=== PATIENT | female | born 1930 | race Caucasian/White ===

== ENCOUNTER 2017-12-15 18:16 | Inpatient (IN) ==
--- NOTE | 2017-12-15 18:44 | Emergency Department Note ---
Weakness HPI - General Chief complaint: Weakness Stated complaint: Unable to care for self Time Seen by Provider: 12/15/17 18:22 Source: EMS Mode of arrival: EMS Limitations: no limitations - History of Present Illness HPI Narrative: 87-year-old female is brought in by EMS. She was found at home where she lives with her son and is now unable to care for herself. She has dementia and he has been taking care of her but she has not gotten care as she should. She sits on the couch most of the time. My history is from EMS. Her son is now willing to get her placed in the home if able to. She is awake and alert and knows that she is in [facility]. Unable to obtain a history. She denies any pain at this time. She is not in any distress and is afebrile. - Related Data Allergies Allergy/AdvReac Type Severity Reaction Status Date / Time No Known Drug Allergies Allergy Verified 12/15/17 18:17 Review of Systems All systems ED: reviewed and negative except as stated. Past Medical History - Past Medical History Medical history: Reports: no medical history (she reports that she does not take any medicine at this time; her son that lives with her affirms this), dementia, other (pneumonia, left hip replacement, chronic back pain and scoliosis) Psychiatric history: Reports: no psych history CHANGE MANAGEMENT DIRECTOR history: Reports: non-contributory Surgical history ED: Reports: hip replacement (right hip total replacement, left hip nailed), other (has a cathy hole in her head from previous hematoma evacuation) Family history: Reports: non-contributory - Social History smoking status: Former smoker Physical Exam Limitations: no limitations General appearance: alert, in no apparent distress Head: atraumatic Eye: Present: normal appearance. Absent: conjunctival injection Neck: Present: normal inspection, full ROM Chest: Present: normal inspection, symmetric chest wall rise Respiratory: Present: other (decreased lung sounds in lower lobes) Cardiovascular: Present: regular rate, normal heart sounds Abdominal: Present: soft, normal bowel sounds. Absent: tenderness Extremities: Absent: pedal edema Neurological: Present: alert, CN II-XII intact, other (very confused. She knows she is in [place] at the hospital). Absent: oriented X3 Psychiatric: Present: normal affect, normal mood Skin: Present: warm, dry, intact Course Course Narrative: Adult protection services has been called twice in regards to this patient. Her son is not taking care of her at home. They live in a facility such as an adult home and there is a plastic manager who has been checking up on her. According to her son she is a lot more confused in the last couple of weeks. She has a urinary tract infection. He is wanting to see if she can be placed in a SNF She has a urinary tract infection and was given a liter of fluids as well as a gram of Rocephin. She will be admitted and the goal is placement to a alf. Vital Signs Temperature 96.9 F L 12/15/17 18:17 Pulse Rate 73 12/15/17 18:17 Respiratory Rate 16 12/15/17 18:17 Blood Pressure 126/71 12/15/17 18:17 Pulse Oximetry (%) 93 12/15/17 18:17 Temperature 96.9 F L 12/15/17 18:17 Pulse Rate 73 12/15/17 18:17 Respiratory Rate 16 12/15/17 18:17 Blood Pressure 126/71 12/15/17 18:17 Pulse Oximetry (%) 93 12/15/17 18:17 Weakness - Lab Data Lab results reviewed: Yes I reviewed the patient's lab results. Result diagrams: 12/15/17 18:50 12/15/17 18:50 Lab Results 12/15/17 12/15/17 12/15/17 Range/Units 18:50 18:50 18:50 WBC 9.4 (4.5-11.0) K/mcL RBC 2.93 L (4.00-5.20) M/mcL Hgb 9.7 L (12.0-15.0) g/dL Hct 29.0 L (36.0-48.0) % MCV 98.8 (80.0-100.0) fL MCH 33.1 (26.0-34.0) pg MCHC 33.6 (31.0-36.0) g/dL RDW 16.1 H (11.5-14.5) % Plt Count 249 (140-440) K/mcL MPV 7.1 L (7.4-10.4) fL Total Counted 100 Seg Neutrophils % 85 H (38-78) % Band Neutrophils % Not Reportable Lymphocytes % 7 L (15-49) % Monocytes % (Manual) 8 (1-12) % Platelet Estimate Normal (NORMAL) RBC Morphology Abnorm A (NORMAL) Anisocytosis 1+ A (NONE SEEN) Ovalocytes Few A (NONE SEEN) RBC Fragments Rare A (NONE SEEN) VBG Lactic Acid 1.0 (0.5-2.2) mmol/L Sodium 130 L (133-145) mmol/L Potassium 3.4 (3.3-5.1) mmol/L Chloride 95 L (96-108) mmol/L Carbon Dioxide 22 (22-30) mmol/L Anion Gap 13.0 (8-16) BUN 23 (8-23) mg/dl Creatinine 2.2 H (0.6-1.1) mg/dl GFR Calculation 20 Glucose 95 (70-105) mg/dL Calcium 8.6 (8.6-10.4) mg/dl Total Bilirubin 0.5 (0.0-1.0) mg/dL AST 13 (0-37) U/l ALT < 5 (0-40) U/l Alkaline Phosphatase 89 (39-117) U/L Troponin T (0-0.03) ng/ml Total Protein 6.6 (5.9-8.4) gm/dL Albumin 2.9 L (3.2-5.2) gm/dL Globulin 3.7 (2.2-3.7) gm/dL Albumin/Globulin Ratio 0.8 L (1.0-2.3) Urine Color Urine Appearance Urine pH (5.0-9.0) Ur Specific [place] (1.000-1.035) Urine Protein (NEG) mg/dL Urine Glucose (UA) (NEG) mg/dL Urine Ketones (NEG) mg/dL Urine Occult Blood (<0.03) mg/dL Urine Nitrate (NEG) Urine Bilirubin (NEG) mg/dL Urine Urobilinogen (NEG) mg/dL Ur Leukocyte Esterase (NEG) /uL Urine RBC (0-1) /hpf Urine WBC (0-4) /hpf Ur Squamous Epith Cells (0-4) /hpf Urine Bacteria (0) /hpf Hyaline Casts (0-2) /lpf Urine Mucus (0) /hpf Ur Culture Indicated? 12/15/17 12/15/17 Range/Units 18:50 19:40 WBC (4.5-11.0) K/mcL RBC (4.00-5.20) M/mcL Hgb (12.0-15.0) g/dL Hct (36.0-48.0) % MCV (80.0-100.0) fL MCH (26.0-34.0) pg MCHC (31.0-36.0) g/dL RDW (11.5-14.5) % Plt Count (140-440) K/mcL MPV (7.4-10.4) fL Total Counted Seg Neutrophils % (38-78) % Band Neutrophils % Lymphocytes % (15-49) % Monocytes % (Manual) (1-12) % Platelet Estimate (NORMAL) RBC Morphology (NORMAL) Anisocytosis (NONE SEEN) Ovalocytes (NONE SEEN) RBC Fragments (NONE SEEN) VBG Lactic Acid (0.5-2.2) mmol/L Sodium (133-145) mmol/L Potassium (3.3-5.1) mmol/L Chloride (96-108) mmol/L Carbon Dioxide (22-30) mmol/L Anion Gap (8-16) BUN (8-23) mg/dl Creatinine (0.6-1.1) mg/dl GFR Calculation Glucose (70-105) mg/dL Calcium (8.6-10.4) mg/dl Total Bilirubin (0.0-1.0) mg/dL AST (0-37) U/l ALT (0-40) U/l Alkaline Phosphatase (39-117) U/L Troponin T 0.01 (0-0.03) ng/ml Total Protein (5.9-8.4) gm/dL Albumin (3.2-5.2) gm/dL Globulin (2.2-3.7) gm/dL Albumin/Globulin Ratio (1.0-2.3) Urine Color Yellow Urine Appearance Clear Urine pH 6.0 (5.0-9.0) Ur Specific [place] 1.014 (1.000-1.035) Urine Protein Neg (NEG) mg/dL Urine Glucose (UA) Negative (NEG) mg/dL Urine Ketones Neg (NEG) mg/dL Urine Occult Blood 0.2 A (<0.03) mg/dL Urine Nitrate Neg (NEG) Urine Bilirubin Neg (NEG) mg/dL Urine Urobilinogen Neg (NEG) mg/dL Ur Leukocyte Esterase 25 A (NEG) /uL Urine RBC 7 H (0-1) /hpf Urine WBC 5 H (0-4) /hpf Ur Squamous Epith Cells 3 (0-4) /hpf Urine Bacteria Few A (0) /hpf Hyaline Casts 3 H (0-2) /lpf Urine Mucus Few (0) /hpf Ur Culture Indicated? Yes - Radiology Data Radiology results reviewed: Yes I reviewed the patient's radiology results. No acute abnormality on chest x-ray Disposition Pt seen by RAIL OPERATIONS CONTROLLER/PA only: Yes Clinical Impression: UTI (urinary tract infection), Neglected elder Disposition: Xfer As Inpt ([facility]) Condition: Fair Referrals: No,PCP [Primary Care Provider] -
--- NOTE | 2017-12-15 19:19 | XRay Report ---
INDICATION: Weakness. Confusion. TECHNIQUE: AP chest x-ray,portable semiupright COMPARISON: 02/23/2007 FINDINGS:Multiple sutures in the right hemithorax. Right hemidiaphragm is elevated. There is colon interposed between the liver and diaphragm. Appearance is not typical of pneumoperitoneum. Lungs are negative. No parenchymal infiltrate or mass. Heart size and vascularity are normal. No pulmonary edema. There is thoracolumbar scoliosis. IMPRESSION: No acute or focal abnormality. Interpreted and Authenticated by: Rick Cabrera 12/15/17
[2017-12-15 19:33] LABS: Mean Cell Volume 98.8 fL (80.0-100.0); Mean Corpuscular HGB Conc 33.6 g/dL (31.0-36.0); Mean Corpuscular Hemoglobin 33.1 pg (26.0-34.0); Platelet Count 249 K/mcL (140-440); RBC 2.93 M/mcL (4.00-5.20); Red Cell Distribution Width 16.1 % (11.5-14.5)
[2017-12-15 19:51] LABS: ALT/SGPT < 5 U/l (0-40); Albumin 2.9 gm/dL (3.2-5.2); Albumin/Globulin Ratio 0.8 (1.0-2.3); Alkaline Phosphatase 89 U/L (39-117); Blood Urea Nitrogen 23 mg/dl (8-23)
[2017-12-15 19:54] LABS: Anisocytosis 1+ (NONE SEEN); Lymphocytes % 7 % (15-49); Monocytes % (Manual) 8 % (1-12); Ovalocytes FEW (NONE SEEN); Platelet Estimate NORMAL (NORMAL); RBC Morphology ABNORM (NORMAL); Segmented Neutrophils % 85 % (38-78)
[2017-12-15] MEDS ORDERED: 0.9 % SODIUM CHLORIDE 1,000 ML IV ONE ×2 (19:56→21:02)
[2017-12-15] MEDS ORDERED: cefTRIAXone 1 GM VIAL IV ONE (20:05)
[2017-12-15 20:13] LABS: Appearance,Urine CLEAR; Bacteria,Urine FEW /hpf (0); Bilirubin,Urine NEG (NEG); Color,Urine YELLOW; Glucose,Urine (UA) NEGATIVE (NEG); Leukocyte Esterase,Urine 25 /uL (NEG); Mucus,Urine FEW /hpf (0); Protein,Urine NEG (NEG); Specific Gravity,Urine 1.014 (1.000-1.035); Urine Blood 0.2 mg/dL (<0.03); Urine Hyaline Cast 3 /lpf (0-2); Urine RBC 7 /hpf (0-1); Urine Squamous Epithelial Cell 3 /hpf (0-4); Urine WBC 5 /hpf (0-4); Urobilinogen,Urine NEG (NEG)
--- NOTE | 2017-12-15 21:37 | Emergency Department Note ---
ED Note Addendum Note Addendum: agree with diagnosis and treatment with Staci and need for admission to Dr. Jim frazier UTI
--- NOTE | 2017-12-15 22:48 | Internal Med History&Physical ---
Medical - H&P: HPI Patient information: Note initiated : 12/15/17 at 10:44 pm Service Date, if different from initiated Date: [] Patient: Megan Perea 87 y/o F admitted on for Unable to care for self. Chief Complaint: [] History of present illness: Ms. Perea is a 87 year old Female history of dementia does not take any medications according to the med list presented to the hospital today brought by emergency medical services for failure to thrive, inability to take care of herself, and worsening confusion over the last few days. The patient has significant dementia and was not able to answer any questions so as to provide a meaningful history. History obtained predominantly from chart review. According to the chart it seems that the patient has a history of severe dementia has been living with her son and was brought to the emergency room for above complaints. Not sure who called EMS. The patient's son in the past has refused placement for the patient. The patient usually is able to take care of herself it seems most over the last few days has been more confused than her baseline status. According to the ED note it seems that adult protective services have been called twice, to evaluate the patient. This time around the patient's son is willing for placement. The patient's son was not at patient's bedside Patient denies any acute complaints, she just wanted to take some medication and go home In the emergency room patient was noted to be confused, her vital signs stable, labs stable showed some anemia, she had renal failure with a creatinine of 2.2. Clinically appeared dry. Sodium was 130, patient had low albumin at 2.9. The UA was suggestive of a UTI The patient was admitted to the hospital for failure to thrive, renal failure, dehydration, urinary tract infection ROS unobtainable: due to mental status Medical - H&P: PMH Medical history: Dementia Pertinent family history: Unable to review Social history: Lives with son Medical - H&P: Meds Allergies Allergy/AdvReac Type Severity Reaction Status Date / Time No Known Drug Allergies Allergy Verified 12/15/17 18:17 Medical - H&P: Exam - Constitutional Vitals: Temp Pulse Resp BP Pulse Ox 96.9 F L 90 24 H 168/100 100 12/15/17 18:17 12/15/17 21:33 12/15/17 21:33 12/15/17 21:33 12/15/17 21:33 Exam: GENERAL: The patient is a well-developed however is thin and frail. He is alert oriented 1 VITAL SIGNS: Reviewed and as noted elsewhere. HEENT: Head is normocephalic and atraumatic. Extraocular muscles are intact. Pupils are equal, round, and reactive to light. Nares appeared normal. Mouth appears any without lesions. Mucous membranes are dry NECK: Normal to inspection, Supple, No lymphadenopathy or thyromegaly. LUNGS: Air entry equal on both sides, no wheezing, crackles or rhonchi noted. No accessory muscles of respiration HEART: Regular rate and rhythm normal, S1 and S2 heard, no Gallop, S3 or Rub Noted, No Gross murmur heard. Heart sounds are distant ABDOMEN: Soft, nontender, and nondistended. Positive bowel sounds. No hepatosplenomegaly was noted. EXTREMITIES: No cyanosis, clubbing, rash, lesions or edema. NEUROLOGIC: Cranial nerves II through XII are grossly intact. Motor and Sensory System Grossly Intact PSYCHIATRIC: Normal affect, Normal Mood. Appropriate Behavior. No agitation SKIN: No ulceration or wounds noted, No jaundice, No rash noted. Medical - H&P: Reslt - Labs CBC & Chem 7: 12/15/17 18:50 12/15/17 18:50 Labs: Short CBC 12/15/17 Range/Units 18:50 WBC 9.4 (4.5-11.0) K/mcL Hgb 9.7 L (12.0-15.0) g/dL Hct 29.0 L (36.0-48.0) % Plt Count 249 (140-440) K/mcL BMP 12/15/17 18:50 Sodium 130 L Potassium 3.4 Chloride 95 L Carbon Dioxide 22 BUN 23 Creatinine 2.2 H Glucose 95 Calcium 8.6 Cardiac Enzymes 12/15/17 Range/Units 18:50 Troponin T 0.01 (0-0.03) ng/ml Liver Function 12/15/17 Range/Units 18:50 Total Bilirubin 0.5 (0.0-1.0) mg/dL AST 13 (0-37) U/l ALT < 5 (0-40) U/l Alkaline Phosphatase 89 (39-117) U/L Albumin 2.9 L (3.2-5.2) gm/dL Urine 12/15/17 Range/Units 19:40 Urine Color Yellow Urine Appearance Clear Urine pH 6.0 (5.0-9.0) Ur Specific [place] 1.014 (1.000-1.035) Urine Protein Neg (NEG) mg/dL Urine Glucose (UA) Negative (NEG) mg/dL Medical - H&P: A/P - Narrative A/P Narrative: A/P Dementia Urinary tract infection Failure to thrive Malnutrition Anemia Altered Mental status Acute Renal failure Dehydration Hyponatremia Plan Admit to med surg IV fluids trend labs IV rocephin for UTI, follow cultures get HEad ct and tsh in AM touch base with case management with regards to dispo planning monitor renal function after hydration. See if we can establish contact with son to get an idea of home living condition Full code for now Regular diet ST/OT/PT therapy.
[2017-12-15] MEDS ORDERED: cefTRIAXone 1 GM in DEXTROSE 5% IN WATER 50 ML IV SCH (23:12)
[2017-12-15] MEDS ORDERED: ONDANSETRON 4 MG/2 ML VIAL IV PRN (23:12)
[2017-12-15] MEDS: 0.9 % SODIUM CHLORIDE 10 ML SYRINGE IV SCH (23:23)
[2017-12-15] MEDS: 0.9 % SODIUM CHLORIDE 1,000 ML IV SCH (23:23)
[2017-12-16] MEDS: 0.9 % SODIUM CHLORIDE 10 ML SYRINGE IV SCH ×3 (06:11→20:16)
[2017-12-16 06:25] LABS: Basophils # (Auto) 0 K/mcL (0.0-0.3); Basophils % (Auto) 0.3 % (0.0-2.0); Eosinophils # (Auto) 0.4 K/mcL (0.0-0.7); Eosinophils % (Auto) 3.4 % (0.0-7.0); Granulocytes % (Auto) 83.2 % (38.0-78.0); Lymphocytes # (Auto) 1.1 K/mcL (1.5-4.8); Lymphocytes % (Auto) 9.8 % (15.5-49.0); Mean Cell Volume 99.9 fL (80.0-100.0); Mean Corpuscular HGB Conc 33.7 g/dL (31.0-36.0); Mean Corpuscular Hemoglobin 33.6 pg (26.0-34.0); Monocytes # (Auto) 0.4 K/mcL (0.1-0.9); Monocytes % (Auto) 3.3 % (1.0-12.0); Platelet Count 253 K/mcL (140-440); RBC 2.71 M/mcL (4.00-5.20); Red Cell Distribution Width 16.6 % (11.5-14.5)
[2017-12-16 07:45] LABS: Ferritin 268.5 ng/ml (30-400)
[2017-12-16 07:54] LABS: ALT/SGPT < 5 U/l (0-40); Albumin 2.7 gm/dL (3.2-5.2); Albumin/Globulin Ratio 0.8 (1.0-2.3); Alkaline Phosphatase 88 U/L (39-117); Bilirubin,Direct < 0.2 mg/dL (0.0-0.3); Blood Urea Nitrogen 23 mg/dl (8-23); Gamma Glutamyl Transpeptidase 8 U/L (5-36); Uric Acid 5.4 mg/dL (2.5-8.0)
--- NOTE | 2017-12-16 08:47 | Cat Scan Report ---
CLINICAL INFORMATION: Dementia. Acute mental status change COMPARISON: Multiple previous brain CT scans including most recent studies dated 01/17/2014, 12/05/2013, 11/26/2013 TECHNIQUE: Axial noncontrast-enhanced images through the brain. FINDINGS: Previous right frontal craniotomy for treatment of right subdural hematoma. No acute intracranial hemorrhage. No new, recurrent subdural hematoma. No subarachnoid hemorrhage. No extra-axial, intracranial abnormality. There is ventriculomegaly, essentially unchanged. There is white matter abnormality consistent with small vessel ischemic change in this 88-year-old patient. There is mild superficial substance loss with mildly prominent sulci. Atrophic changes are predominantly deep. This appearance is stable. No new intra-axial attenuation abnormalities. No localized mass effect. No midline shift. Brainstem and cerebellum are negative. Basilar cisterns are normal. No calvarial fracture. No lytic lesion. IMPRESSION: 1. Previous right frontal craniotomy for treatment of subdural hematoma 2. No acute intracranial hemorrhage. No new or recurrent subdural hematoma 3. Cerebral atrophy. White matter abnormality consistent with small vessel ischemic change. 4. No acute focal intra-axial abnormality. The exam was performed using radiation dose optimization techniques including, but not limited to, automated exposure control, adjustment of the mA and/or kV according to patient size and use of iterative reconstruction technique. Interpreted and Authenticated by: Rick Cabrera 12/16/17
[2017-12-16] MEDS: FAMOTIDINE 20 MG TABLET PO SCH ×2 (10:17→20:16)
[2017-12-16] MEDS: DOCUSATE SODIUM 100 MG CAPSULE PO SCH ×2 (10:17→20:16)
[2017-12-16] MEDS: HEPARIN 5,000 UNIT/ML VIAL SQ SCH ×2 (10:17→20:15)
[2017-12-16] MEDS: 0.9 % SODIUM CHLORIDE 1,000 ML IV SCH ×2 (13:00)
--- NOTE | 2017-12-16 15:48 | Internal Med Progress Note ---
Medical - PN: Subj Patient information: Note initiated : 12/16/17 at 3:45 pm Service Date, if different from initiated Date: [] Patient: Megan Perea 87 y/o F admitted on 12/15/17 for Dementia, failure to thrive. Chief Complaint: [] Interval history: Ms. Perea is a 87 year old Female history of dementia does not take any medications according to the med list presented to the hospital today brought by emergency medical services for failure to thrive, inability to take care of herself, and worsening confusion over the last few days. The patient has significant dementia and was not able to answer any questions so as to provide a meaningful history. History obtained predominantly from chart review. According to the chart it seems that the patient has a history of severe dementia has been living with her son and was brought to the emergency room for above complaints. Not sure who called EMS. The patient's son in the past has refused placement for the patient. The patient usually is able to take care of herself it seems most over the last few days has been more confused than her baseline status. According to the ED note it seems that adult protective services have been called twice, to evaluate the patient. This time around the patient's son is willing for placement. The patient's son was not at patient's bedside Patient denies any acute complaints, she just wanted to take some medication and go home In the emergency room patient was noted to be confused, her vital signs stable, labs stable showed some anemia, she had renal failure with a creatinine of 2.2. Clinically appeared dry. Sodium was 130, patient had low albumin at 2.9. The UA was suggestive of a UTI The patient was admitted to the hospital for failure to thrive, renal failure, dehydration, urinary tract infection December 16 Patient seen and examined no acute overnight event, patient's mental status still the same she remains confused and demented. Has no acute complaints. Labs are stable and are normal, creatinine improved 1.9. Patient's urine culture is growing E. coli sensitivity pending patient remains on Rocephin Pertinent ROS: Denies headache, dizziness Denies chest pain, palpitations Denies cough or shortness of breath Denies abdominal pain, nausea or vomiting. Patient is presently confused and denies any complaints - Constitutional Vitals: Vital Signs Temp Pulse Resp BP Pulse Ox 98.5 F 92 H 14 126/69 94 12/16/17 15:44 12/16/17 04:00 12/16/17 15:44 12/16/17 15:44 12/16/17 15:44 Period Temp Pulse Resp BP Sys/Mc Pulse Ox Last 24 Hr 96.9 F-98.7 F 68-92 13-24 85-168/38-114 73-100 Intake and Output 12/16/17 12/16/17 12/16/17 05:59 13:59 21:59 Intake Total 1100 / 1100 1240 / 1240 Balance 1100 / 1100 1240 / 1240 Weight 86 lb 86 lb Patient Weight 12/17/17 05:59 Weight 86 lb Intake & Output: Intake & Output 12/16/17 12/16/17 12/16/17 05:59 13:59 21:59 Intake Total 1100 / 1100 1240 / 1240 Balance 1100 / 1100 1240 / 1240 Weight 86 lb 86 lb Intake: IV 1000 / 1000 1000 / 1000 Sodium Chloride 0.9% 1,000 ml @ 1000 / 1000 84 mls/hr IV .[id number] [facility] Rx#: [id number] Oral 100 / 100 240 / 240 Other: Meal Breakfast Percent of Meal Consumed 100% Feeding Ability Assist with Tray Set Up Stool Size Smear Smear Stool Color Brown Brown Stool Consistency Soft Soft Exam: Constitutional; Afebrile, cooperative, alert, not in distress. Eyes- No icterus, , No periorbital swelling Ears- Ext ear normal, hearing normal to conversation. Neck- Midline trachea, supple Respiratory system: Air Entry equal on both sides, No crackles or wheezing, no rhonchi. CVS- Rate rhythm regular, S1,S2 heard, no gallop, no rub. Abdomen- Soft nontender abdomen, no organomegaly, no tenderness, no guarding or rigidity, ATMOSPHERIC SCIENCES PROFESSOR- AOOx1, moving all extremities, no gross focal deficit noted. Medical - PN: Obj Da - Labs CBC & Chem 7: 12/16/17 05:07 12/16/17 05:07 Labs: Abnormal Lab Results 12/16/17 12/16/17 12/16/17 05:07 05:07 05:07 RBC 2.71 L Hgb 9.1 L Hct 27.1 L RDW 16.6 H MPV 7.3 L Gran % 83.2 H Lymph % (Auto) 9.8 L Gran # 9.1 H Lymph # (Auto) 1.1 L Seg Neutrophils % Lymphocytes % RBC Morphology Anisocytosis Ovalocytes RBC Fragments Sodium Chloride Carbon Dioxide 17 L Anion Gap 17.0 H Creatinine 1.9 H Calcium 8.0 L Iron 33 L TIBC 140 L Unsat Iron Binding 107 L Albumin 2.7 L Albumin/Globulin Ratio 0.8 L TSH 5.85 H Urine Occult Blood Ur Leukocyte Esterase Urine RBC Urine WBC Urine Bacteria Hyaline Casts 12/15/17 12/15/17 12/15/17 19:40 18:50 18:50 RBC 2.93 L Hgb 9.7 L Hct 29.0 L RDW 16.1 H MPV 7.1 L Gran % Lymph % (Auto) Gran # Lymph # (Auto) Seg Neutrophils % 85 H Lymphocytes % 7 L RBC Morphology Abnorm A Anisocytosis 1+ A Ovalocytes Few A RBC Fragments Rare A Sodium 130 L Chloride 95 L Carbon Dioxide Anion Gap Creatinine 2.2 H Calcium Iron TIBC Unsat Iron Binding Albumin 2.9 L Albumin/Globulin Ratio 0.8 L TSH Urine Occult Blood 0.2 A Ur Leukocyte Esterase 25 A Urine RBC 7 H Urine WBC 5 H Urine Bacteria Few A Hyaline Casts 3 H Meds: Medications Acetaminophen (Tylenol) 650 mg PO Q6HP PRN PRN Reason: PAIN/FEVER > 101 Ceftriaxone Sodium (Rocephin) 1 gm IV DAILY [facility] Docusate Sodium (Colace) 100 mg PO BID [facility] Last Admin: 12/16/17 10:17 Dose: 100 mg Famotidine (Pepcid) 20 mg PO BID [facility] Last Admin: 12/16/17 10:17 Dose: 20 mg Heparin Sodium (Porcine) (Heparin) 5,000 unit SQ Q12 [facility] Last Admin: 12/16/17 10:17 Dose: 5,000 unit Sodium Chloride (Sodium Chloride 0.9%) 1,000 mls @ 84 mls/hr IV .[id number] [facility] Stop: 12/16/17 23:00 Last Admin: 12/16/17 13:00 Dose: Not Given Ondansetron HCl (Zofran) 4 mg IV Q6HP PRN PRN Reason: Nausea And Vomiting Sodium Chloride (Saline Flush) 10 ml IV Q8 [facility] Last Admin: 12/16/17 13:23 Dose: Not Given Medical - PN: A/P - Time Spent With Patient Total time spent is greater than 50% in coordination of care (as documented) at patient's floor/unit and/or counseling patient: - Narrative A/P Narrative: A/P Dementia E. coli urinary tract infection Failure to thrive Malnutrition Anemia Altered Mental status Acute Renal failure Dehydration Hyponatremia Plan Continue to monitor on the floor IV fluids, sodium improved, creatinine trending down trend labs IV rocephin for UTI, await sensitivities Head CT is negative for TSH mildly abnormal Patient will likely be needed to be [facility] monitor renal function after hydration. Full code for now Regular diet
[2017-12-16] MEDS: cefTRIAXone 1 GM VIAL IV SCH (16:05)
[2017-12-16 17:39] LABS: Vitamin B12 445.4 pg/ml (232-1245)
[2017-12-16] MEDS: ACETAMINOPHEN 325 MG TABLET PO PRN (20:16)
[2017-12-17] MEDS: 0.9 % SODIUM CHLORIDE 10 ML SYRINGE IV SCH ×3 (05:48→22:53)
[2017-12-17 06:05] LABS: Basophils # (Auto) 0 K/mcL (0.0-0.3); Basophils % (Auto) 0 % (0.0-2.0); Eosinophils # (Auto) 0.8 K/mcL (0.0-0.7); Eosinophils % (Auto) 4.6 % (0.0-7.0); Granulocytes % (Auto) 89.2 % (38.0-78.0); Lymphocytes # (Auto) 0.6 K/mcL (1.5-4.8); Lymphocytes % (Auto) 3.3 % (15.5-49.0); Mean Cell Volume 99.9 fL (80.0-100.0); Mean Corpuscular HGB Conc 33.8 g/dL (31.0-36.0); Mean Corpuscular Hemoglobin 33.7 pg (26.0-34.0); Monocytes # (Auto) 0.5 K/mcL (0.1-0.9); Monocytes % (Auto) 2.9 % (1.0-12.0); Platelet Count 268 K/mcL (140-440); RBC 2.68 M/mcL (4.00-5.20); Red Cell Distribution Width 16.5 % (11.5-14.5)
[2017-12-17 06:39] LABS: ALT/SGPT < 5 U/l (0-40); Albumin 2.4 gm/dL (3.2-5.2); Albumin/Globulin Ratio 0.8 (1.0-2.3); Alkaline Phosphatase 88 U/L (39-117); Bilirubin,Direct < 0.2 mg/dL (0.0-0.3); Blood Urea Nitrogen 20 mg/dl (8-23); Gamma Glutamyl Transpeptidase 8 U/L (5-36); Uric Acid 4.7 mg/dL (2.5-8.0)
[2017-12-17] MEDS ORDERED: POTASSIUM CHLORIDE 20 MEQ PACKET PO ONE (07:38)
[2017-12-17] MEDS: cefTRIAXone 1 GM VIAL IV SCH (10:31)
[2017-12-17] MEDS: HEPARIN 5,000 UNIT/ML VIAL SQ SCH ×2 (10:32→23:17)
[2017-12-17] MEDS: THIAMINE 100 MG TABLET PO SCH (10:32)
[2017-12-17] MEDS: FAMOTIDINE 20 MG TABLET PO SCH ×2 (10:32→23:18)
[2017-12-17] MEDS: CYANOCOBALAMIN (VITAMIN B-12) 500 MCG TABLET PO SCH (10:32)
[2017-12-17] MEDS: DOCUSATE SODIUM 100 MG CAPSULE PO SCH ×2 (10:32→23:18)
[2017-12-17] MEDS: MULTIVIT,THER IRON,CA,FA & MIN 1 TABLET PO SCH (10:33)
[2017-12-17] MEDS: FOLIC ACID 1 MG TABLET PO SCH (10:33)
[2017-12-17] MEDS ORDERED: 0.9 % SODIUM CHLORIDE 1,000 ML IV SCH (12:15)
--- NOTE | 2017-12-17 12:17 | Internal Med Progress Note ---
Medical - PN: Subj Patient information: Note initiated : 12/17/17 at 12:14 pm Service Date, if different from initiated Date: [] Patient: Megan Perea 87 y/o F admitted on 12/15/17 for Dementia, failure to thrive. Chief Complaint: [] Interval history: Ms. Perea is a 87 year old Female history of dementia does not take any medications according to the med list presented to the hospital today brought by emergency medical services for failure to thrive, inability to take care of herself, and worsening confusion over the last few days. The patient has significant dementia and was not able to answer any questions so as to provide a meaningful history. History obtained predominantly from chart review. According to the chart it seems that the patient has a history of severe dementia has been living with her son and was brought to the emergency room for above complaints. Not sure who called EMS. The patient's son in the past has refused placement for the patient. The patient usually is able to take care of herself it seems most over the last few days has been more confused than her baseline status. According to the ED note it seems that adult protective services have been called twice, to evaluate the patient. This time around the patient's son is willing for placement. The patient's son was not at patient's bedside Patient denies any acute complaints, she just wanted to take some medication and go home In the emergency room patient was noted to be confused, her vital signs stable, labs stable showed some anemia, she had renal failure with a creatinine of 2.2. Clinically appeared dry. Sodium was 130, patient had low albumin at 2.9. The UA was suggestive of a UTI The patient was admitted to the hospital for failure to thrive, renal failure, dehydration, urinary tract infection December 16 Patient seen and examined no acute overnight event, patient's mental status still the same she remains confused and demented. Has no acute complaints. Labs are stable and are normal, creatinine improved 1.9. Patient's urine culture is growing E. coli sensitivity pending patient remains on Rocephin December 17 Patient seen and examined no acute overnight events this morning patient wanted to sleep, did not talk much. Labs show worsening leukocytosis WBC count is around 17,000 now. Patient has remained afebrile. Creatinine is improving creatinine is 1.6. Urine culture is growing pansensitive E. coli, Plan repeat chest x-ray. Labs show low folic acid, will start on multivitamin replacement. check zinc level Pertinent ROS: Denies headache, dizziness Denies chest pain, palpitations Denies cough or shortness of breath Denies abdominal pain, nausea or vomiting. just wanted to sleep, denies any complaints. - Constitutional Vitals: Vital Signs Temp Pulse Resp BP Pulse Ox 97.4 F 100 H 16 106/72 97 12/17/17 08:00 12/17/17 04:00 12/17/17 08:00 12/17/17 08:00 12/17/17 08:00 Period Temp Pulse Resp BP Sys/Mc Pulse Ox Last 24 Hr 97.4 F-98.5 F 80-100 14-18 97-127/46-87 90-97 Intake and Output 12/16/17 12/17/17 12/17/17 21:59 05:59 13:59 Intake Total 400 / 400 200 / 200 Output Total 2 / 2 100 / 100 Balance 398 / 398 100 / 100 Weight 82 lb Intake & Output: Intake & Output 12/16/17 12/17/17 12/17/17 21:59 05:59 13:59 Intake Total 400 / 400 200 / 200 Output Total 2 / 2 100 / 100 Balance 398 / 398 100 / 100 Weight 82 lb Intake: Oral 400 / 400 200 / 200 Output: Void Amount 100 / 100 # of times incontinent of urine 2 / 2 Other: Meal Dinner Percent of Meal Consumed 25% Feeding Ability Needs Supervision Stool Size Moderate Small Stool Color Brown Brown Stool Consistency Soft Soft Loose # Voids 1 # of times incontinent of 1 Bowels Exam: Constitutional; Afebrile, cooperative and drowsy today. Eyes- No icterus, , No periorbital swelling Ears- Ext ear normal, hearing normal to conversation. Neck- Midline trachea, supple Respiratory system: Air Entry equal on both sides, No crackles or wheezing, no rhonchi. CVS- Rate rhythm regular, S1,S2 heard, no gallop, no rub. 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 Medical - PN: Obj Da - Labs CBC & Chem 7: 12/17/17 04:31 12/17/17 04:31 Labs: Abnormal Lab Results 12/17/17 12/17/17 12/16/17 04:31 04:31 05:07 WBC 17.0 H RBC 2.68 L Hgb 9.1 L Hct 26.8 L RDW 16.5 H MPV 7.2 L Gran % 89.2 H Lymph % (Auto) 3.3 L Gran # 15.2 H Lymph # (Auto) 0.6 L Eos # (Auto) 0.8 H Seg Neutrophils % Lymphocytes % RBC Morphology Anisocytosis Ovalocytes RBC Fragments Sodium Chloride Carbon Dioxide 18 L Anion Gap Creatinine 1.6 H Calcium 7.8 L Iron TIBC Unsat Iron Binding Total Protein 5.3 L Albumin 2.4 L Albumin/Globulin Ratio 0.8 L Folate 3.1 L TSH Urine Occult Blood Ur Leukocyte Esterase Urine RBC Urine WBC Urine Bacteria Hyaline Casts 12/16/17 12/16/17 12/16/17 05:07 05:07 05:07 WBC RBC 2.71 L Hgb 9.1 L Hct 27.1 L RDW 16.6 H MPV 7.3 L Gran % 83.2 H Lymph % (Auto) 9.8 L Gran # 9.1 H Lymph # (Auto) 1.1 L Eos # (Auto) Seg Neutrophils % Lymphocytes % RBC Morphology Anisocytosis Ovalocytes RBC Fragments Sodium Chloride Carbon Dioxide 17 L Anion Gap 17.0 H Creatinine 1.9 H Calcium 8.0 L Iron 33 L TIBC 140 L Unsat Iron Binding 107 L Total Protein Albumin 2.7 L Albumin/Globulin Ratio 0.8 L Folate TSH 5.85 H Urine Occult Blood Ur Leukocyte Esterase Urine RBC Urine WBC Urine Bacteria Hyaline Casts 12/15/17 12/15/17 12/15/17 19:40 18:50 18:50 WBC RBC 2.93 L Hgb 9.7 L Hct 29.0 L RDW 16.1 H MPV 7.1 L Gran % Lymph % (Auto) Gran # Lymph # (Auto) Eos # (Auto) Seg Neutrophils % 85 H Lymphocytes % 7 L RBC Morphology Abnorm A Anisocytosis 1+ A Ovalocytes Few A RBC Fragments Rare A Sodium 130 L Chloride 95 L Carbon Dioxide Anion Gap Creatinine 2.2 H Calcium Iron TIBC Unsat Iron Binding Total Protein Albumin 2.9 L Albumin/Globulin Ratio 0.8 L Folate TSH Urine Occult Blood 0.2 A Ur Leukocyte Esterase 25 A Urine RBC 7 H Urine WBC 5 H Urine Bacteria Few A Hyaline Casts 3 H Meds: Medications Acetaminophen (Tylenol) 650 mg PO Q6HP PRN PRN Reason: PAIN/FEVER > 101 Last Admin: 12/16/17 20:16 Dose: 650 mg Ceftriaxone Sodium (Rocephin) 1 gm IV DAILY [facility] Last Admin: 12/17/17 10:31 Dose: 1 gm Cyanocobalamin (Vitamin B-12) 1,000 mcg PO DAILY [facility] Last Admin: 12/17/17 10:32 Dose: 1,000 mcg Docusate Sodium (Colace) 100 mg PO BID [facility] Last Admin: 12/17/17 10:32 Dose: 100 mg Famotidine (Pepcid) 20 mg PO BID [facility] Last Admin: 12/17/17 10:32 Dose: 20 mg Folic Acid (Folic Acid) 1 mg PO DAILY [facility] Last Admin: 12/17/17 10:33 Dose: 1 mg Heparin Sodium (Porcine) (Heparin) 5,000 unit SQ Q12 [facility] Last Admin: 12/17/17 10:32 Dose: 5,000 unit Iron Carb/Multivit/[place]/Folic Acid (Multivitamin W/Minerals) 1 tab PO DAILY [facility] Last Admin: 12/17/17 10:33 Dose: 1 tab Ondansetron HCl (Zofran) 4 mg IV Q6HP PRN PRN Reason: Nausea And Vomiting Sodium Chloride (Saline Flush) 10 ml IV Q8 [facility] Last Admin: 12/17/17 05:48 Dose: 10 ml Thiamine HCl (Vitamin B1) 100 mg PO DAILY [facility] Last Admin: 12/17/17 10:32 Dose: 100 mg Medical - PN: A/P - Time Spent With Patient Total time spent is greater than 50% in coordination of care (as documented) at patient's floor/unit and/or counseling patient: - Narrative A/P Narrative: A/P Dementia E. coli urinary tract infection Failure to thrive Malnutrition Anemia Altered Mental status Acute Renal failure Dehydration Hyponatremia Plan Continue to monitor on the floor IV fluids, to continue hypotnatremia resolved replace folic acid, add b12, mv supplements Continue Rocephin for UTI check chest x-ray today given worsening leukocytosis Head CT is negative for TSH mildly abnormal Patient will likely be needed to be discharged to [facility] facility Renal function is slowly improving creatinines 1.6, TSH is mildly abnormal no need for replacement at this point Full code for now Regular diet
--- NOTE | 2017-12-17 13:04 | XRay Report ---
INDICATION: Dementia. Failure to thrive. TECHNIQUE: AP chest x-ray,portable semiupright COMPARISON: 12/15/2017 FINDINGS:There are surgical sutures in the right hemithorax. No acute parenchymal infiltrate or mass. Heart size and vascularity are normal. Radha and mediastinum are negative. No acute abnormality. No interval change IMPRESSION: No acute abnormality, no interval change since 12/15/2017 Interpreted and Authenticated by: Rick Cabrera 12/17/17
[2017-12-17] MEDS: ACETAMINOPHEN 325 MG TABLET PO PRN (17:44)
[2017-12-18] MEDS: 0.9 % SODIUM CHLORIDE 10 ML SYRINGE IV SCH ×3 (05:32→21:43)
[2017-12-18 06:08] LABS: Basophils # (Auto) 0 K/mcL (0.0-0.3); Basophils % (Auto) 0.2 % (0.0-2.0); Eosinophils # (Auto) 0.5 K/mcL (0.0-0.7); Eosinophils % (Auto) 4.4 % (0.0-7.0); Granulocytes % (Auto) 78.8 % (38.0-78.0); Lymphocytes # (Auto) 1.4 K/mcL (1.5-4.8); Lymphocytes % (Auto) 13.1 % (15.5-49.0); Mean Cell Volume 99.2 fL (80.0-100.0); Mean Corpuscular HGB Conc 33.8 g/dL (31.0-36.0); Mean Corpuscular Hemoglobin 33.5 pg (26.0-34.0); Monocytes # (Auto) 0.4 K/mcL (0.1-0.9); Monocytes % (Auto) 3.5 % (1.0-12.0); Platelet Count 261 K/mcL (140-440); RBC 2.59 M/mcL (4.00-5.20); Red Cell Distribution Width 16.6 % (11.5-14.5)
[2017-12-18 06:41] LABS: ALT/SGPT < 5 U/l (0-40); Albumin 2.5 gm/dL (3.2-5.2); Albumin/Globulin Ratio 0.8 (1.0-2.3); Alkaline Phosphatase 96 U/L (39-117); Bilirubin,Direct < 0.2 mg/dL (0.0-0.3); Blood Urea Nitrogen 18 mg/dl (8-23); Gamma Glutamyl Transpeptidase 8 U/L (5-36); Uric Acid 4.5 mg/dL (2.5-8.0)
[2017-12-18 07:54] LABS: ABG Methemoglobin 0.3 % (0.4-1.5); VBG Base Excess -6.7 (-2.0-2.0); VBG HCO3 18.4 mmol/L (24.0-28.0); VBG PCO2 34.9 mmHg (41.0-51.0); VBG PH 7.34 U (7.32-7.42); VBG PO2 58 mmHg (25-40); VBG Total CO2 19.5 mmol/L (25.0-29.0)
[2017-12-18] MEDS: FONDAPARINUX SODIUM 2.5 MG/0.5 ML SYRINGE SQ SCH (11:32)
[2017-12-18] MEDS: cefTRIAXone 1 GM VIAL IV SCH (11:33)
[2017-12-18] MEDS: FOLIC ACID 1 MG TABLET PO SCH (11:33)
[2017-12-18] MEDS: THIAMINE 100 MG TABLET PO SCH (11:33)
[2017-12-18] MEDS: DOCUSATE SODIUM 100 MG CAPSULE PO SCH ×2 (11:33→21:42)
[2017-12-18] MEDS: CYANOCOBALAMIN (VITAMIN B-12) 500 MCG TABLET PO SCH (11:33)
[2017-12-18] MEDS: MULTIVIT,THER IRON,CA,FA & MIN 1 TABLET PO SCH (11:33)
[2017-12-18] MEDS: FAMOTIDINE 20 MG TABLET PO SCH ×2 (11:34→21:43)
--- NOTE | 2017-12-18 16:55 | Internal Med Progress Note ---
Medical - PN: Subj Patient information: Note initiated : 12/18/17 at 4:50 pm Service Date, if different from initiated Date: [] Patient: Megan Perea 87 y/o F admitted on 12/15/17 for Dementia, failure to thrive. Chief Complaint: [] Interval history: Ms. Perea is a 87 year old Female history of dementia does not take any medications according to the med list presented to the hospital today brought by emergency medical services for failure to thrive, inability to take care of herself, and worsening confusion over the last few days. The patient has significant dementia and was not able to answer any questions so as to provide a meaningful history. History obtained predominantly from chart review. According to the chart it seems that the patient has a history of severe dementia has been living with her son and was brought to the emergency room for above complaints. Not sure who called EMS. The patient's son in the past has refused placement for the patient. The patient usually is able to take care of herself it seems most over the last few days has been more confused than her baseline status. According to the ED note it seems that adult protective services have been called twice, to evaluate the patient. This time around the patient's son is willing for placement. The patient's son was not at patient's bedside Patient denies any acute complaints, she just wanted to take some medication and go home In the emergency room patient was noted to be confused, her vital signs stable, labs stable showed some anemia, she had renal failure with a creatinine of 2.2. Clinically appeared dry. Sodium was 130, patient had low albumin at 2.9. The UA was suggestive of a UTI The patient was admitted to the hospital for failure to thrive, renal failure, dehydration, urinary tract infection December 16 Patient seen and examined no acute overnight event, patient's mental status still the same she remains confused and demented. Has no acute complaints. Labs are stable and are normal, creatinine improved 1.9. Patient's urine culture is growing E. coli sensitivity pending patient remains on Rocephin December 17 Patient seen and examined no acute overnight events this morning patient wanted to sleep, did not talk much. Labs show worsening leukocytosis WBC count is around 17,000 now. Patient has remained afebrile. Creatinine is improving creatinine is 1.6. Urine culture is growing pansensitive E. coli, Plan repeat chest x-ray. Labs show low folic acid, will start on multivitamin replacement. check zinc level december 18 Patient seen and examined, no acute overnight events, was sleeping comfortably in bed however did wake up and answer questions she has no acute complaints she is feeling at her baseline. Creatinine worsened to 1.7 today. Her WBC count is back to normal. Her bicarbonate is dropping it is 15 today. Urine anion gap is positive patient does not have lactic acidosis this is likely secondary to renal tubular acidosis. Likely secondary to his chronic kidney disease. Start on bicarbonate 60 mg twice a day. The patient heparin has been discontinued and patient will use Arixtra for DVT prophylaxis for now. Pertinent ROS: Denies headache, dizziness Denies chest pain, palpitations Denies cough or shortness of breath Denies abdominal pain, nausea or vomiting. - Constitutional Vitals: Vital Signs Temp Pulse Resp BP Pulse Ox 97.5 F 79 16 103/57 97 12/18/17 12:00 12/18/17 04:00 12/18/17 12:00 12/18/17 12:00 12/18/17 12:00 Period Temp Pulse Resp BP Sys/Mc Pulse Ox Last 24 Hr 97.0 F-99.1 F 79-87 14-20 94-118/52-66 91-99 Intake and Output 12/18/17 12/18/17 12/18/17 05:59 13:59 21:59 Intake Total 1700 / 1700 Output Total 2 / 2 Balance 1698 / 1698 Weight 84 lb Patient Weight 12/19/17 05:59 Weight 84 lb Intake & Output: Intake & Output 12/18/17 12/18/17 12/18/17 05:59 13:59 21:59 Intake Total 1700 / 1700 Output Total 2 / 2 Balance 1698 / 1698 Weight 84 lb Intake: IV 1000 / 1000 Sodium Chloride 0.9% 1,000 ml @ 1000 / 1000 100 mls/hr IV .Q10H [facility] Rx#: [id number] Oral 700 / 700 Output: # of times incontinent of urine 2 / 2 Other: Percent of Meal Consumed 0% Exam: Constitutional; Afebrile, cooperative, alert, not in distress. Eyes- No icterus, , No periorbital swelling Ears- Ext ear normal, hearing okay to conversation Neck- Midline trachea, supple Respiratory system: Air Entry equal on both sides, No crackles or wheezing, no rhonchi. CVS- Rate rhythm regular, S1,S2 heard, no gallop, no rub. Abdomen- Soft nontender abdomen, no organomegaly, no tenderness, no guarding or rigidity, BUSINESS ARCHITECT- AOOx1, moving all extremities, no gross focal deficit noted. Medical - PN: Obj Da - Labs CBC & Chem 7: 12/18/17 04:46 12/18/17 04:46 Labs: Abnormal Lab Results 12/18/17 12/18/17 12/18/17 07:32 04:46 04:46 WBC RBC 2.59 L Hgb 8.7 L Hct 25.7 L RDW 16.6 H MPV Gran % 78.8 H Lymph % (Auto) 13.1 L Gran # 8.6 H Lymph # (Auto) 1.4 L Eos # (Auto) Seg Neutrophils % Lymphocytes % RBC Morphology Anisocytosis Ovalocytes RBC Fragments ABG Methemoglobin 0.3 L VBG pCO2 34.9 L VBG pO2 58 H VBG HCO3 18.4 L VBG Total CO2 19.5 L VBG O2 Saturation 83.0 H VBG Base Excess -6.7 L Carboxyhemoglobin 5.6 H Total Hemoglobin 8.7 L Sodium Chloride Carbon Dioxide 15 L Anion Gap Creatinine 1.7 H Calcium 8.1 L Phosphorus 2.4 L Iron TIBC Unsat Iron Binding Total Protein 5.5 L Albumin 2.5 L Albumin/Globulin Ratio 0.8 L Folate TSH Urine Occult Blood Ur Leukocyte Esterase Urine RBC Urine WBC Urine Bacteria Hyaline Casts 12/17/17 12/17/17 12/16/17 04:31 04:31 05:07 WBC 17.0 H RBC 2.68 L Hgb 9.1 L Hct 26.8 L RDW 16.5 H MPV 7.2 L Gran % 89.2 H Lymph % (Auto) 3.3 L Gran # 15.2 H Lymph # (Auto) 0.6 L Eos # (Auto) 0.8 H Seg Neutrophils % Lymphocytes % RBC Morphology Anisocytosis Ovalocytes RBC Fragments ABG Methemoglobin VBG pCO2 VBG pO2 VBG HCO3 VBG Total CO2 VBG O2 Saturation VBG Base Excess Carboxyhemoglobin Total Hemoglobin Sodium Chloride Carbon Dioxide 18 L Anion Gap Creatinine 1.6 H Calcium 7.8 L Phosphorus Iron TIBC Unsat Iron Binding Total Protein 5.3 L Albumin 2.4 L Albumin/Globulin Ratio 0.8 L Folate 3.1 L TSH Urine Occult Blood Ur Leukocyte Esterase Urine RBC Urine WBC Urine Bacteria Hyaline Casts 12/16/17 12/16/17 12/16/17 05:07 05:07 05:07 WBC RBC 2.71 L Hgb 9.1 L Hct 27.1 L RDW 16.6 H MPV 7.3 L Gran % 83.2 H Lymph % (Auto) 9.8 L Gran # 9.1 H Lymph # (Auto) 1.1 L Eos # (Auto) Seg Neutrophils % Lymphocytes % RBC Morphology Anisocytosis Ovalocytes RBC Fragments ABG Methemoglobin VBG pCO2 VBG pO2 VBG HCO3 VBG Total CO2 VBG O2 Saturation VBG Base Excess Carboxyhemoglobin Total Hemoglobin Sodium Chloride Carbon Dioxide 17 L Anion Gap 17.0 H Creatinine 1.9 H Calcium 8.0 L Phosphorus Iron 33 L TIBC 140 L Unsat Iron Binding 107 L Total Protein Albumin 2.7 L Albumin/Globulin Ratio 0.8 L Folate TSH 5.85 H Urine Occult Blood Ur Leukocyte Esterase Urine RBC Urine WBC Urine Bacteria Hyaline Casts 12/15/17 12/15/17 12/15/17 19:40 18:50 18:50 WBC RBC 2.93 L Hgb 9.7 L Hct 29.0 L RDW 16.1 H MPV 7.1 L Gran % Lymph % (Auto) Gran # Lymph # (Auto) Eos # (Auto) Seg Neutrophils % 85 H Lymphocytes % 7 L RBC Morphology Abnorm A Anisocytosis 1+ A Ovalocytes Few A RBC Fragments Rare A ABG Methemoglobin VBG pCO2 VBG pO2 VBG HCO3 VBG Total CO2 VBG O2 Saturation VBG Base Excess Carboxyhemoglobin Total Hemoglobin Sodium 130 L Chloride 95 L Carbon Dioxide Anion Gap Creatinine 2.2 H Calcium Phosphorus Iron TIBC Unsat Iron Binding Total Protein Albumin 2.9 L Albumin/Globulin Ratio 0.8 L Folate TSH Urine Occult Blood 0.2 A Ur Leukocyte Esterase 25 A Urine RBC 7 H Urine WBC 5 H Urine Bacteria Few A Hyaline Casts 3 H Meds: Medications Acetaminophen (Tylenol) 650 mg PO Q6HP PRN PRN Reason: PAIN/FEVER > 101 Last Admin: 12/17/17 17:44 Dose: 650 mg Ceftriaxone Sodium (Rocephin) 1 gm IV DAILY [facility] Last Admin: 12/18/17 11:33 Dose: 1 gm Cyanocobalamin (Vitamin B-12) 1,000 mcg PO DAILY [facility] Last Admin: 12/18/17 11:33 Dose: 1,000 mcg Docusate Sodium (Colace) 100 mg PO BID [facility] Last Admin: 12/18/17 11:33 Dose: 100 mg Famotidine (Pepcid) 20 mg PO BID [facility] Last Admin: 12/18/17 11:34 Dose: 20 mg Folic Acid (Folic Acid) 1 mg PO DAILY [facility] Last Admin: 12/18/17 11:33 Dose: 1 mg Fondaparinux (Arixtra) 2.5 mg SQ DAILY [facility] Last Admin: 12/18/17 11:32 Dose: 2.5 mg Iron Carb/Multivit/[place]/Folic Acid (Multivitamin W/Minerals) 1 tab PO DAILY [facility] Last Admin: 12/18/17 11:33 Dose: 1 tab Ondansetron HCl (Zofran) 4 mg IV Q6HP PRN PRN Reason: Nausea And Vomiting Sodium Chloride (Saline Flush) 10 ml IV Q8 [facility] Last Admin: 12/18/17 05:32 Dose: 10 ml Thiamine HCl (Vitamin B1) 100 mg PO DAILY [facility] Last Admin: 12/18/17 11:33 Dose: 100 mg - ABG Interpretation ABG results: 12/18/17 07:32 ABG Methemoglobin 0.3 L VBG pH 7.34 VBG pCO2 34.9 L VBG pO2 58 H VBG HCO3 18.4 L VBG Total CO2 19.5 L VBG O2 Saturation 83.0 H VBG Base Excess -6.7 L Medical - PN: A/P - Time Spent With Patient Total time spent is greater than 50% in coordination of care (as documented) at patient's floor/unit and/or counseling patient: - Narrative A/P Narrative: A/P Dementia E. coli urinary tract infection Failure to thrive Malnutrition Anemia Altered Mental status Acute Renal failure Dehydration Hyponatremia Non-anion gap metabolic acidosis chronic kidney disease Plan Continue to monitor on the floor Discontinue IV fluids P.o. bicarbonate twice a day for acidosis hypotnatremia resolved replace folic acid, add b12, mv supplements Continue Rocephin for UTI. Pansensitive E. coli noted on urine culture Chest x-ray is negative, WBC count is back to normal Head CT is negative for TSH mildly abnormal Patient will likely be needed to be discharged to sn[facility] facility Renal function is slowly improving creatinines 1.7 which appears to be her baseline at this time, TSH is mildly abnormal no need for replacement at this point. Full code for now Regular diet
[2017-12-18] MEDS: SODIUM BICARBONATE 650 MG TABLET PO SCH ×2 (21:42)
[2017-12-19 05:05] LABS: Basophils # (Auto) 0 K/mcL (0.0-0.3); Basophils % (Auto) 0 % (0.0-2.0); Eosinophils # (Auto) 0.5 K/mcL (0.0-0.7); Eosinophils % (Auto) 5.1 % (0.0-7.0); Granulocytes % (Auto) 77.9 % (38.0-78.0); Lymphocytes # (Auto) 1.1 K/mcL (1.5-4.8); Lymphocytes % (Auto) 12.5 % (15.5-49.0); Mean Cell Volume 99.7 fL (80.0-100.0); Mean Corpuscular HGB Conc 33.2 g/dL (31.0-36.0); Mean Corpuscular Hemoglobin 33.1 pg (26.0-34.0); Monocytes # (Auto) 0.4 K/mcL (0.1-0.9); Monocytes % (Auto) 4.5 % (1.0-12.0); Platelet Count 240 K/mcL (140-440); RBC 2.39 M/mcL (4.00-5.20); Red Cell Distribution Width 16.3 % (11.5-14.5)
[2017-12-19 05:42] LABS: ALT/SGPT < 5 U/l (0-40); Albumin 2.2 gm/dL (3.2-5.2); Albumin/Globulin Ratio 0.8 (1.0-2.3); Alkaline Phosphatase 92 U/L (39-117); Bilirubin,Direct < 0.2 mg/dL (0.0-0.3); Blood Urea Nitrogen 19 mg/dl (8-23); Gamma Glutamyl Transpeptidase 7 U/L (5-36); Uric Acid 4.7 mg/dL (2.5-8.0)
[2017-12-19] MEDS: 0.9 % SODIUM CHLORIDE 10 ML SYRINGE IV SCH ×3 (05:52→21:41)
[2017-12-19] MEDS: SODIUM BICARBONATE 650 MG TABLET PO SCH ×2 (10:34→21:41)
[2017-12-19] MEDS: cefTRIAXone 1 GM VIAL IV SCH (10:34)
[2017-12-19] MEDS: FOLIC ACID 1 MG TABLET PO SCH (10:34)
[2017-12-19] MEDS: FAMOTIDINE 20 MG TABLET PO SCH ×2 (10:34→21:41)
[2017-12-19] MEDS: FONDAPARINUX SODIUM 2.5 MG/0.5 ML SYRINGE SQ SCH (10:35)
[2017-12-19] MEDS: CYANOCOBALAMIN (VITAMIN B-12) 500 MCG TABLET PO SCH (10:35)
[2017-12-19] MEDS: DOCUSATE SODIUM 100 MG CAPSULE PO SCH ×3 (10:35→21:41)
[2017-12-19] MEDS: MULTIVIT,THER IRON,CA,FA & MIN 1 TABLET PO SCH (10:35)
[2017-12-19] MEDS: THIAMINE 100 MG TABLET PO SCH (10:35)
--- NOTE | 2017-12-19 11:05 | Discharge Summary ---
Medical - DS: Prov Patient information: Note initiated : 12/19/17 at 11:00 am Service Date, if different from initiated Date: [] Patient: Megan Perea 87 y/o F admitted on 12/15/17 for Dementia, failure to thrive. Chief Complaint: [] Date of admission: 12/15/17 23:14 Discharge date: 12/19/17 Primary care physician: PCP No Consults: 12/15/17 20:50 Consult to Physician [CONS] Stat Comment: Consulting Provider: Wna Fernandez Reason For Exam: Physician to Consult Medical - DS: Meds - Discharge Medications Prescriptions: Ciprofloxacin [Cipro] 500 mg PO BID #6 tab Active and Home Medications: Home Medications Ciprofloxacin [Cipro] 500 mg PO BID #6 tab 12/19/17 [Rx Last Taken Unknown] Medical - DS: Hosp Hospital course: DISCHARGE DIAGNOSIS * E. coli urinary tract infection- continue ciprofloxacin for additional 2 days * Failure to thrive- continue dietary supplements * Malnutrition-on diet per dietitian * Anemia- follow-up PCP for further evaluation. No indication for transfusion at this time * Altered Mental status-resolved now at baseline with underlying dementia * Acute Renal failure-underlying chronic kidney disease stage III. Creatinine baseline 1.7 * Dehydration-resolved with crystalloids * Hyponatremia- resolved. From 1:30 to 140 * Non-anion gap metabolic acidosis * chronic kidney disease * dementia at baseline BRIEF HOSPITAL COURSE Ms. Perea is a 87 year old Female history of dementia does not take any medications according to the med list presented to the hospital today brought by emergency medical services for failure to thrive, inability to take care of herself, and worsening confusion over the last few days. The patient has significant dementia and was not able to answer any questions so as to provide a meaningful history. History obtained predominantly from chart review. According to the chart it seems that the patient has a history of severe dementia has been living with her son and was brought to the emergency room for above complaints. Not sure who called EMS. The patient's son in the past has refused placement for the patient. The patient usually is able to take care of herself it seems most over the last few days has been more confused than her baseline status. According to the ED note it seems that adult protective services have been called twice, to evaluate the patient. This time around the patient's son is willing for placement. The patient's son was not at patient's bedside Patient denies any acute complaints, she just wanted to take some medication and go home In the emergency room patient was noted to be confused, her vital signs stable, labs stable showed some anemia, she had renal failure with a creatinine of 2.2. Clinically appeared dry. Sodium was 130, patient had low albumin at 2.9. The UA was suggestive of a UTI The patient was admitted to the hospital for failure to thrive, renal failure, dehydration, urinary tract infection December 16 Patient seen and examined no acute overnight event, patient's mental status still the same she remains confused and demented. Has no acute complaints. Labs are stable and are normal, creatinine improved 1.9. Patient's urine culture is growing E. coli sensitivity pending patient remains on Rocephin December 17 Patient seen and examined no acute overnight events this morning patient wanted to sleep, did not talk much. Labs show worsening leukocytosis WBC count is around 17,000 now. Patient has remained afebrile. Creatinine is improving creatinine is 1.6. Urine culture is growing pansensitive E. coli, Plan repeat chest x-ray. Labs show low folic acid, will start on multivitamin replacement. check zinc level december 18 Patient seen and examined, no acute overnight events, was sleeping comfortably in bed however did wake up and answer questions she has no acute complaints she is feeling at her baseline. Creatinine worsened to 1.7 today. Her WBC count is back to normal. Her bicarbonate is dropping it is 15 today. Urine anion gap is positive patient does not have lactic acidosis this is likely secondary to renal tubular acidosis. Likely secondary to his chronic kidney disease. Start on bicarbonate 60 mg twice a day. The patient heparin has been discontinued and patient will use Arixtra for DVT prophylaxis for now. December 19-patient pleasantly confused. No overnight events. No concerns per staff. On ceftriaxone for Escherichia coli UTI. Transition to oral ciprofloxacin for additional 3 days. Discharge to SNF for continued rehabilitation. Creatinine at baseline 1.7. Recommend outpatient nephrology follow-up. Discharge instructions and medications as Discharge diagnosis: . - Time Spent with Patient Total time spent providing and/or coordinating discharge services: Greater than 30 minutes Medical - DS: Exam - Constitutional Vitals: Vital Signs Temp Pulse Resp BP BP Pulse Ox 12/19/17 08:00 98.9 F 84 14 118/57 97 12/19/17 04:45 98.6 F 89 16 125/68 99 12/19/17 00:26 97.7 F 95 H 14 106/57 97 12/18/17 21:36 99.3 F H 104 H 16 119/63 99 12/18/17 16:00 97.6 F 14 134/78 99 12/18/17 12:00 97.5 F 16 103/57 97 Intake and Output 12/18/17 12/19/17 12/19/17 21:59 05:59 13:59 Intake Total 280 / 280 150 / 150 Output Total 3 / 3 Balance 280 / 280 147 / 147 Intake: Oral 280 / 280 150 / 150 Output: # of times incontinent of urine 3 / 3 Other: Meal Nourishment/Supplement Dinner Percent of Meal Consumed 0% 2 bites Feeding Ability Needs Supervision Weight 90 lb Medical - DS: Data Labs on day of discharge: Labs from last 24 hours 12/19/17 12/19/17 12/18/17 04:00 04:00 10:28 WBC 8.9 RBC 2.39 L Hgb 7.9 L Hct 23.8 L MCV 99.7 MCH 33.1 MCHC 33.2 RDW 16.3 H Plt Count 240 MPV 7.3 L Gran % 77.9 Lymph % (Auto) 12.5 L Otero % (Auto) 4.5 Eos % (Auto) 5.1 Baso % (Auto) 0 Gran # 6.9 Lymph # (Auto) 1.1 L Otero # (Auto) 0.4 Eos # (Auto) 0.5 Baso # (Auto) 0 Sodium 137 Potassium 4.2 Chloride 106 Carbon Dioxide 18 L Anion Gap 13.0 BUN 19 Creatinine 1.7 H GFR Calculation 27 Glucose 83 Uric Acid 4.7 Calcium 7.9 L Phosphorus 2.3 L Magnesium 1.8 Total Bilirubin 0.3 Direct Bilirubin < 0.2 GGT 7 AST 15 ALT < 5 Alkaline Phosphatase 92 Lactate Dehydrogenase 183 Total Protein 5.1 L Albumin 2.2 L Globulin 2.9 Albumin/Globulin Ratio 0.8 L Triglycerides 81 Ur Random Sodium 125 Ur Random Potassium 20.2 Ur Random Chloride 124 Preliminary micro results at discharge 12/15/17 20:40 Blood Culture - Preliminary Blood 12/15/17 21:20 Blood Culture - Preliminary Blood Medical - DS: A/P - Patient/Caregiver Discharge Instructions Activity: as per physical therapy Diet: Regular Diet Additional Instructions: Follow-up PCP in 5 days follow-up nephrology 2 weeks I recommend SNF physician to check CBC BMP UA as a posthospital follow-up in 1 week. Antibiotics for 3 days Continue aggressive bowel regimen to prevent constipation Continue fall precautions Continue aggressive PT OT evaluation and treatment at SNF. ST eval and treatment if indicated All meals on chair sitting upright at 90 degrees to prevent aspiration Return to ER if worsening fever chills shortness of breath, diarrhea, bleeding Review risk and side effect profile of medications including antibiotics. Side effect may include mild to severe reaction including rash, diarrhea, cdiff and even which can be prevented by close follow-up with PCP and monitoring for side effects Continue diet and activity as advised Discussed importance of medication adherence Please review medication list with patient prior to discharge Please schedule follow-up with PCP/Providers prior to discharge and provide printouts Portions of this chart may have been created with [employer] voice recognition software. Occasional wrong-word or ?sound-like? substitutions may have occurred due to the inherent limitations of voice recognition software. Please read the chart carefully and recognize, using context, where the substitutions have occurred. CC- PCP Prescriptions: Ciprofloxacin [Cipro] 500 mg PO BID #6 tab - Follow up Plan Follow up with: No,PCP [Primary Care Provider] - Disposition: Xfer [facility] Prognosis: Fair Rehab Potential: Fair I certify that the patient requires SNF services: Yes Overall status at discharge: patient is back to baseline
[2017-12-20] MEDS: 0.9 % SODIUM CHLORIDE 10 ML SYRINGE IV SCH (04:53)
[2017-12-20 05:45] LABS: Basophils # (Auto) 0 K/mcL (0.0-0.3); Basophils % (Auto) 0.3 % (0.0-2.0); Eosinophils # (Auto) 0.3 K/mcL (0.0-0.7); Eosinophils % (Auto) 4.3 % (0.0-7.0); Granulocytes % (Auto) 71.5 % (38.0-78.0); Lymphocytes # (Auto) 1.4 K/mcL (1.5-4.8); Lymphocytes % (Auto) 18.8 % (15.5-49.0); Mean Cell Volume 99.4 fL (80.0-100.0); Mean Corpuscular HGB Conc 33.9 g/dL (31.0-36.0); Mean Corpuscular Hemoglobin 33.7 pg (26.0-34.0); Monocytes # (Auto) 0.4 K/mcL (0.1-0.9); Monocytes % (Auto) 5.1 % (1.0-12.0); Platelet Count 236 K/mcL (140-440); RBC 2.33 M/mcL (4.00-5.20); Red Cell Distribution Width 16.4 % (11.5-14.5)
[2017-12-20 06:21] LABS: ALT/SGPT < 5 U/l (0-40); Albumin 2.4 gm/dL (3.2-5.2); Albumin/Globulin Ratio 0.8 (1.0-2.3); Alkaline Phosphatase 88 U/L (39-117); Bilirubin,Direct < 0.2 mg/dL (0.0-0.3); Blood Urea Nitrogen 18 mg/dl (8-23); Gamma Glutamyl Transpeptidase 7 U/L (5-36); Uric Acid 4.7 mg/dL (2.5-8.0)
[2017-12-20] MEDS: cefTRIAXone 1 GM VIAL IV SCH (09:20)
[2017-12-20] MEDS: FONDAPARINUX SODIUM 2.5 MG/0.5 ML SYRINGE SQ SCH (09:21)
[2017-12-20] MEDS: SODIUM BICARBONATE 650 MG TABLET PO SCH (09:23)
[2017-12-20] MEDS: FAMOTIDINE 20 MG TABLET PO SCH (09:24)
[2017-12-20] MEDS: THIAMINE 100 MG TABLET PO SCH (09:24)
[2017-12-20] MEDS: CYANOCOBALAMIN (VITAMIN B-12) 500 MCG TABLET PO SCH (09:24)
[2017-12-20] MEDS: FOLIC ACID 1 MG TABLET PO SCH (09:25)
[2017-12-20] MEDS: DOCUSATE SODIUM 100 MG CAPSULE PO SCH (09:25)
[2017-12-20] MEDS: MULTIVIT,THER IRON,CA,FA & MIN 1 TABLET PO SCH (09:26)
[2017-12-20] MEDS: ACETAMINOPHEN 325 MG TABLET PO PRN (09:29)
--- NOTE | 2017-12-20 10:46 | Discharge Plan ---
Discharge Plan - Patient/Caregiver Discharge Instructions Discharge Summary: please refer to discharge summary from 12/19. Discharge was delayed due to lack of ability of bed. No overnight events or changes. Activity: as per physical therapy Diet: Regular Diet Additional Instructions: Follow-up PCP in 5 days Follow-up nephrology 2 weeks. This has been scheduled with Dr. Rowe's office for 01/04 @ 2:30 PM I recommend SNF physician to check CBC BMP UA as a posthospital follow-up in 1 week. Antibiotics for 3 days Continue aggressive bowel regimen to prevent constipation Continue fall precautions Continue aggressive PT OT evaluation and treatment at [facility]. ST eval and treatment if indicated All meals on chair sitting upright at 90 degrees to prevent aspiration Return to ER if worsening fever chills shortness of breath, diarrhea, bleeding Review risk and side effect profile of medications including antibiotics. Side effect may include mild to severe reaction including rash, diarrhea, cdiff and even which can be prevented by close follow-up with PCP and monitoring for side effects Continue diet and activity as advised Discussed importance of medication adherence Please review medication list with patient prior to discharge Please schedule follow-up with PCP/Providers prior to discharge and provide printouts Prescriptions: Ciprofloxacin [Cipro] 500 mg PO BID #6 tab Other Amb Orders: OT Discharge Order Location: Determined By Patient Physical Therapy at Discharge - General Location: Determined By Patient ST Discharge Order Location: Determined By Patient - Follow up Plan Follow up with: Sanjuana Rowe MD [Physician] - 01/04/18 2:30 pm No,PCP [Primary Care Provider] - Disposition: [facility] Prognosis: Fair Rehab Potential: Fair I certify that the patient requires SNF services.: Yes Overall status at discharge: patient is progressing back to baseline
== END 2017-12-20 11:20 | DRG 690 ==
LOC: ED 18:16 → MEDSUR 23:14
PROVIDERS: ADMIT Internal Medicine; ATTEND Internal Medicine